=== PATIENT | female | born 1955 | race Caucasian/White ===

== ENCOUNTER → 2018-09-23 | Outpatient (CLI) | payer MEDICARE, MEDICAID ==
--- NOTE | 2018-09-24 08:07 | REP ---
REASON FOR EXAM: Single pulmonary nodule. There are no prior examinations for comparison. There are no prior CTs to review. After the intravenous administration of 7.46 millicuries of FDG18, triplane whole body PET CT was performed from the skull base to the mid thigh. There is no abnormal hypermetabolic activity seen in the neck, chest, abdomen, or pelvis. IMPRESSION: Negative CT/PET. Electronically Signed by Kenyon Caal DO 09/24/2018 11:14 A
== END ==
LOC: M PLARAD 07:32
DX: R91.1 Solitary pulmonary nodule (principal)
CPT/HCPCS: 78815; A9552